=== PATIENT | male | born 1975 | race Caucasian/White ===

== ENCOUNTER 2017-03-26 14:15 | Inpatient (IN) | payer OTHER ==
[~2017-03-26] VITALS: Ht 172.7 cm; Wt 114.8 kg
--- NOTE | ~2017-03-26 | HP ---
Unit #: [id number] #: [id number] Patient: LINK GONZALES [id number] [place] [address] [id number] MR#: [id number] NAME: LINK GONZALES ROOM: [facility] Age: 41 Sex: M Admission Date: 03/26/2017 : 1975 Attending Physician: Nadine Duckworth M.D. Admitting Physician: Nadine Duckworth M.D. Primary Care Physician: Primary Care Physician No HISTORY AND PHYSICAL HISTORY OF PRESENT ILLNESS Link is a 41 year old admitted to [address] [place] [address] with depression and verbalizing wanting to hurt himself. He has had other admissions to this facility. PAST MEDICAL HISTORY 1. Long history of alcohol abuse. He denies anything currently. 2. Asthma. 3. Obesity. PAST SURGICAL HISTORY 1. Left knee. 2. Skin graft as a child. ALLERGIES Penicillin, sulfa, sertraline. SOCIAL HISTORY Smokes one pack per day. Has a history of alcohol abuse but denies anything currently. He denies any illicit drug use. FAMILY HISTORY Medically noncontributory. REVIEW OF SYSTEMS CONSTITUTIONAL: No fever or chills. HEENT: Denies any sore throat, ear pain or runny nose. CARDIOVASCULAR: Denies chest pain, irregular heart rhythm or palpitations. CHEST: Denies shortness of breath or cough. No hemoptysis. GASTROINTESTINAL: Denies nausea, vomiting, diarrhea or chronic constipation. ENDOCRINE: Denies history of increased thirst or urination. No recent significant weight loss or gain. GENITOURINARY: Denies dysuria, frequency, or hematuria. SKIN: Denies any rashes. HEMATOLOGIC: Denies history of increased bleeding or bruising. MUSCULOSKELETAL: Denies any hot, swollen joints. No generalized muscle pain. NEUROLOGIC: Denies problems with vision or speech. No frequent, severe headaches. No numbness, tingling or weakness in any extremities. Denies loss of bladder or bowel control. Unit #: [id number] #: [id number] Patient: LINK GONZALES CURRENT MEDICATIONS 1. Nicorette gum 2. Vistaril p.r.n. 3. Desyrel p.r.n. 4. Milk of Magnesia p.r.n. 5. Maalox p.r.n. 6. Tylenol p.r.n. PHYSICAL EXAMINATION GENERAL: Alert, obese, in no apparent distress. VITAL SIGNS: Blood pressure 116/72, heart rate 80, respirations 16, temperature 98.6. WEIGHT: 253 pounds. HEIGHT: 5'8". SKIN: Warm and dry without rash or lesion. HEENT: Normocephalic. TMs not viewed. Oral and nasal passages clear. Conjunctivae clear. Pupils equal, round and reactive to light and accommodation. Extraocular movements intact. NECK: Supple without lymphadenopathy or thyromegaly. HEART: Regular rate and rhythm without murmur. LUNGS: Clear. ABDOMEN: Soft, nontender. : Not done. EXTREMITIES: No evidence of cyanosis, clubbing or edema. Moves all extremities without focal deficit. NEUROLOGICAL: Grossly within normal limits. Cranial Nerves: II: Visual sheehan are intact. III, IV AND : Extraocular movements are intact. Pupils are equal, round and reactive to light. V: Facial sensation is grossly normal. VII: Facial movements and expression are normal. VIII: Auditory acuity grossly intact. IX, X: Uvula is midline. Phonation is normal. XI: Patient shrugs shoulders and turns head normally. XII: Tongue protrudes in the midline. Sensory and Motor Function: Sensory and motor sensation is grossly normal. Motor: moves all extremities well. Coordination: Gait is normal. Deep Tendon Reflexes: Intact. IMPRESSION Psychiatric admission RECOMMENDATIONS PSYCHIATRIC: Per psychiatrist. MEDICAL: I see no contraindications to participating in facility's activities. MEDICAL PROGNOSIS Good. MEDICAL CONDITION Stable. Dictated by... Unit #: [id number] #: [id number] Patient: LINK GONZALES Aba Hawthorne/tiffanie TD: 03/26/2017 22:33 JOB #: [id number] HISTORY AND PHYSICAL Page 1 of 1 X Anna Erwin HISTORY AND PHYSICAL
--- NOTE | ~2017-03-26 | PA ---
Unit #: [id number] #: [id number] Patient: LINK GONZALES [id number] [facility] [place] [address] [id number] I MR#: [id number] NAME: LINK GONZALES ROOM: P264 Age: 41 Sex: M Admission Date: 03/26/2017 : 1975 Date of Assessment: 03/26/2017 Attending Physician: Nadine Duckworth M.D. Admitting Physician: Nadine Duckworth M.D. Primary Care Physician: Primary Care Physician No PSYCHIATRIC ASSESSMENT DATE OF SERVICE 03/26/2017. IDENTIFYING DATA Mr. Gonzales is a 41-year-old disabled white male, who is a resident of [place], [place], and is very well known to us from previous multiple encounters and carries a diagnosis of schizoaffective, bipolar type and was self-referred back to the hospital on a voluntary basis. CHIEF COMPLAINT "Suicide attempt today." HISTORY OF PRESENT ILLNESS Mr. Gonzales is a 41-year-old white male with long history of chronic mental illness, who apparently has been off his medication and has been decompensating and presented stating that he attempted to suicide today and that he tried to kill himself today by jumping out in front of a car, but knows the cause stop and stated that he has experienced suicidal ideation in the past 2 days and reports that he has been out of his prescription medication for the last 2 weeks because of the insurance issues and has not been taking his medication consistently over the past year until 2 weeks ago. He does report increasing depression, anxiety, irritability, restlessness, feelings of hopelessness and helplessness, and suicidal ideations with intent and plan and as such, recommendation for inpatient level of care for safety and stabilization was made and the patient was transferred to us. SUBSTANCE ABUSE HISTORY The patient denies any alcohol or drug abuse. PAST PSYCHIATRIC HISTORY The patient has had history of numerous and multiple [facility] addition to being at [facility], and has had outpatient treatment and has been diagnosed and treated for schizoaffective disorder, bipolar type. However, currently he has been off his medication and as such, has been decompensating. PAST MEDICAL HISTORY Asthma. ALLERGIES Penicillin, Zoloft, nicotine patch. Unit #: [id number] #: [id number] Patient: LINK GONZALES PERSONAL AND SOCIAL HISTORY A 41-year-old white male, who reports that he is single, unemployed, disabled, and lives in a homeless group home and has poor social support system. MENTAL STATUS EXAMINATION Middle-aged white male who was casually dressed with fair personal hygiene, appears to be in no acute distress or discomfort. He was awake and alert on interaction with intact orientation to time, place, and person. His mood was anxious and depressed with a congruent affect. His speech was slow and restricted in content. His thought processes were disorganized with some looseness of associations and suicidal ideations. His insight and judgment remain significantly impaired. DIAGNOSTIC IMPRESSION Psychiatric: Schizoaffective disorder, bipolar type, most recent episode depressed, recurrent, moderate, without psychotic features. Medical: Asthma. Stressors: Moderate psychosocial stressors. TREATMENT PLAN 1. The patient has presented with a history of mood disorder and has been decompensating and will need inpatient hospitalization for safety and stabilization. We will start him back on his home medications. We will adjust the medications and monitor response. 2. Supportive therapy was provided to the patient. 3. Safe, structured, and nourishing environment will be provided. ESTIMATED LENGTH OF STAY 5 to 7 days. ABILITY TO HELP SELF Limited. WILLINGNESS TO HELP SELF The patient appears to be willing to help self. STRENGTHS 1. Communicative. 2. Cooperative. PROBLEMS 1. Chronic dysphoric symptoms. 2. Poor social support system. DISCHARGE CRITERIA This will be contingent upon the patient's ability to show resolution of his depression and anxiety and his ability to stay safe to himself, particularly after discharge from the hospital. Dictated by... Melina Noyoal/dinesh TD: 03/27/2017 23:05 Unit #: [id number] #: [id number] Patient: LINK GONZALES JOB #: [id number] PSYCHIATRIC ASSESSMENT Page 1 of 1 X Nadine Duckworth MD PSYCHIATRIC ASSESSMENT
--- NOTE | ~2017-03-26 | DS ---
Unit #: [id number] #: [id number] [facility]: [facility] [id number] [facility] [place] [address] [id number] I MR#: [id number] NAME: LINK GONZALES ROOM: 64 Age: 41 Sex: M Admission Date: 03/26/2017 : 1975 Discharge Date: 04/02/2017 Attending Physician: Nadine Duckworth M.D. Primary Care Physician: Primary Care Physician No DISCHARGE SUMMARY IDENTIFYING DATA Mr. oGnzales is a 41-year-old disabled white male, who is a resident of [place], [place], and is known to us from previous encounter and was self-referred to the hospital. DISCHARGE DIAGNOSES Psychiatric: Schizoaffective disorder, bipolar type, most recent episode depressed, recurrent, moderate, without psychotic features. Medical: Asthma. Stressors: Mild psychosocial stressors. HISTORY OF PRESENT ILLNESS Please see initial psychiatric evaluation for details. PAST PSYCHIATRIC HISTORY Please see initial psychiatric evaluation for details. PAST MEDICAL HISTORY Please see initial psychiatric evaluation for details. HOSPITAL COURSE The patient was admitted to the adult psychiatric unit at [facility] jocelyne [facility] and was oriented to the hospital environment. Routine p.r.n. medications were initiated, and he was started back on his home medications including his Abilify and Effexor, and concerning his history of poor compliance with medication on an outpatient basis, he was considered to be a candidate for long-acting injectable antipsychotic and since he was not having any allergic reaction to Abilify, he was started on Aristada as a long-acting injectable antipsychotic and was given the first dose of 662 mg while on the unit; followed by which, it was decided that he will be maintained on Aristada on an outpatient basis and will be given the oral supplementation with Abilify for the next 2 weeks, and since he was denying any suicidal or homicidal ideations, it was decided that he will be discharged home and will continue treatment on an outpatient basis. DISCHARGE MEDICATIONS Aristada 662 mg intramuscular every 30 days for schizoaffective disorder and Effexor XR 150 mg a day for depression. DISCHARGE CONDITION Stable. PROGNOSIS Unit #: [id number] #: [id number] Patient: LINK GONZALES [facility]. Dictated by... IrfMelina Nicole/dinesh TD: 04/02/2017 19:46 JOB #: [id number] DISCHARGE SUMMARY Page 1 of 1 X Nadine Duckworth MD DISCHARGE SUMMARY
--- NOTE | ~2017-03-26 | PN ---
Unit #: [id number] #: [id number] Patient: LINK GONZALES [id number] [facility] [address] [place] [address] [id number] I MR#: [id number] NAME: LINK GONZALES ROOM: [facility] Age: 41 Sex: M Admission Date: 03/26/2017 : 1975 Attending Physician: Nadine Duckworth M.D. Admitting Physician: Nadine Duckworth M.D. Primary Care Physician: Primary Care Physician Roxana MC NOTES DATE 03/31/2017 DISCUSSION Mr. Gonzales is a 41-year-old, white male who was seen today and chart was reviewed and case was discussed with the staff. He has been anxious, withdrawn though has not shown any agitation, irritability and has been cooperative with treatment recommendations. He has been taking the medications and tolerating them fairly well with no reported side effects. MENTAL STATUS EXAM Middle-aged white male who was casually dressed with fair personal hygiene, appears to be in no acute distress or discomfort. He was awake and alert on interaction with intact orientation. His mood was anxious with congruent affect. He denies any suicidal or homicidal ideation. His insight and judgement remains slightly impaired. TREATMENT PLAN 1. We will continue him on his current medications and treatment protocol. We will monitor his response to the medication and make further adjustments as needed. 2. We will continue to follow up. Dictated by... Melina Noyola/tiffanie TD: 04/02/2017 03:09 JOB #: [id number] Unit #: [id number] #: [id number] Patient: LINK GONZALES PROGRESS NOTES Page 1 of 1 X Nadine Duckworth MD PROGRESS NOTE
--- NOTE | ~2017-03-26 | TN ---
Unit #: [id number] #: [id number] Patient: LINK GONZALES [id number] [facility] [address] [place] [address] [id number] I MR#: [id number] NAME: LINK GONZALES ROOM: P264 Age: 41 Sex: M Admission Date: 03/26/2017 : 1975 Discharge Date: 04/02/2017 Attending Physician: Nadine Duckworth M.D. Primary Care Physician: Primary Care Physician No LOC TRANSFER NOTE DATE OF SERVICE: 04/04/2017 IDENTIFYING DATA Mr. Gonzales is a 41-year-old, single, disabled white male who is a resident of [place], [place] and was stepped down to the outpatient treatment program from the adult inpatient psychiatric unit. CHIEF COMPLAINT "I need to get back to the outpatient treatment program." HISTORY OF PRESENT ILLNESS Mr. Gonzales is a 41-year-old white male with history of mood disorder and substance abuse, who was stepped down to the outpatient treatment program from the adult inpatient psychiatric unit, where he was brought in with increasing depression, suicidal ideations, and has been noncompliant with medications and was diagnosed and treated for schizoaffective disorder, bipolar type and alcohol abuse and he stabilized on Abilify long-acting injectable and was enrolled on Abilify monthly injection and stepped down to the outpatient treatment program. On evaluation by me, the patient reports that he got out of the hospital and has been staying at a local homeless senior living until he gets into a senior care house and has been staying sober and has been taking the medications and tolerating them fairly well. He denies any suicidal or homicidal ideations. SUBSTANCE ABUSE HISTORY The patient has history of alcohol abuse, but denies any other substance abuse. PAST PSYCHIATRIC HISTORY The patient has had history of multiple [facility] to being at , and has been diagnosed and treated for schizoaffective disorder bipolar type and is currently on a combination of Aristada once monthly injection and Effexor. PAST MEDICAL HISTORY Asthma. ALLERGIES Penicillin, shellfish, Zoloft, and nicotine patch. PERSONAL AND SOCIAL HISTORY A 41-year-old white male who reports that he is single, disabled, Unit #: [id number] #: [id number] Patient: LINK GONZALES unemployed and lives in a homeless senior living and has poor social support system. MENTAL STATUS EXAMINATION Middle-aged white male who was casually dressed with fair personal hygiene, appears to be in no acute distress or discomfort. He was awake and alert on interaction with intact orientation. His mood was anxious with a congruent affect. His speech was slow and goal directed. His thought processes were disorganized with some looseness of associations. He denies any suicidal or homicidal ideations. His insight and judgment remain significantly impaired. DIAGNOSTIC IMPRESSION Psychiatric: Schizoaffective disorder, bipolar type, most recent episode depressed, recurrent, moderate, without psychotic features; alcohol abuse, moderate. Medical: Asthma. Stressors: Moderate psychosocial stressors. TREATMENT PLAN 1. The patient has presented with history of substance abuse and mood disorder. We will recommend enrolling him into the outpatient treatment program and maintaining him on his current medications. We will monitor his response and make further adjustments as needed. 2. Supportive therapy was provided to the patient. 3. Safe, structured, and nourishing environment will be provided. ESTIMATED LENGTH OF STAY 14 to 21 days. ABILITY TO HELP SELF Limited. WILLINGNESS TO HELP SELF The patient appears to be willing to help self. STRENGTHS 1. Communicative. 2. Cooperative. PROBLEMS 1. Chronic dysphoric symptoms. 2. Poor social support system. DISCHARGE CRITERIA This will be contingent upon the patient's ability to show resolution of his depression and anxiety and his ability to stay safe and sober, particularly after discharge from the hospital. Dictated by... Melina Noyola/dinesh TD: 04/05/2017 22:27 JOB #: [id number] Unit #: [id number] #: [id number] Patient: LINK GONZALES LOC TRANSFER NOTE Page 1 of 1 X Nadine Duckworth MD X LOC TRANSFER NOTE
--- NOTE | ~2017-03-26 | PN ---
Unit #: [id number] #: [id number] Patient: LINK GONZALES [id number] [facility] [address] [place] [address] [id number] I MR#: [id number] NAME: LINK GONZALES ROOM: 64 Age: 41 Sex: M Admission Date: 03/26/2017 : 1975 Attending Physician: Nadine Duckworth M.D. Admitting Physician: Nadine Duckworth M.D. Primary Care Physician: Primary Care Physician Roxana ALLEN PROGRESS NOTES DATE 03/30/2017 DISCUSSION Mr. Gonzales is a 41-year-old white male who was seen today and chart was reviewed and case was discussed with the staff. He has been anxious, withdrawn, rather seclusive to himself. Meanwhile, he has been cooperative with treatment recommendations and has been taking medications and tolerating them fairly well with no reported side effects. MENTAL STATUS EXAMINATION Middle-aged white male who was casually dressed with fair personal hygiene and appears to be in no acute distress or discomfort. He was awake and alert on interactions with intact orientation. His mood was anxious with congruent affect. He denies any suicidal or homicidal ideations and also denies any auditory or visual hallucinations. His insight and judgement remains slightly impaired. TREATMENT PLAN 1. Will continue on his current medications and treatment protocol. Will monitor response to the medications and make further adjustments as needed. 2. Will continue to follow up. Dictated by... Melina Noyola/neha TD: 03/30/2017 16:54 JOB #: [id number] Unit #: [id number] #: [id number] Patient: LINK GONZALES PROGRESS NOTES Page 1 of 1 X Nadine Duckworth MD PROGRESS NOTE
--- NOTE | ~2017-03-26 | PN ---
Unit #: [id number] #: [id number] Patient: LINK GONZALES [id number] [facility] [address] [place] [address] [id number] I MR#: [id number] NAME: LINK GONZALES ROOM: 64 Age: 41 Sex: M Admission Date: 03/26/2017 : 1975 Attending Physician: Nadine Duckworth M.D. Admitting Physician: Nadine Duckworth M.D. Primary Care Physician: Primary Care Physician Roxana ALLEN PROGRESS NOTES DATE 03/29/2017 DISCUSSION Mr. Gonzales is a 41-year-old white male who was seen today and chart was reviewed and case was discussed with the staff. He has been anxious, withdrawn, rather seclusive to himself. Meanwhile, he has been cooperative with treatment recommendations and has been taking medications and tolerating them fairly well with no reported side effects. MENTAL STATUS EXAMINATION Middle-aged white male who was casually dressed with fair personal hygiene and appears to be in no acute distress or discomfort. He was awake and alert on interaction with intact orientation. His mood was anxious with congruent affect. He denies any suicidal or homicidal ideation. His insight and judgement remains slightly impaired. TREATMENT PLAN 1. Will continue on his current medications and treatment protocol. Will monitor his response to the medications and make further adjustments as needed. 2. Will continue to follow up. Dictated by... Melina Noyola/neha TD: 03/29/2017 22:32 JOB #: [id number] Unit #: [id number] #: [id number] Patient: LINK GONZALES PROGRESS NOTES Page 1 of 1 X Nadine Duckworth MD PROGRESS NOTE
--- NOTE | ~2017-03-26 | PN ---
Unit #: [id number] #: [id number] Patient: LINK GONZALES [id number] [facility] [address] [place] [address] [id number] I MR#: [id number] NAME: LINK GONZALES ROOM: 64 Age: 41 Sex: M Admission Date: 03/26/2017 : 1975 Attending Physician: Nadine Duckworth M.D. Admitting Physician: Nadine Duckworth M.D. Primary Care Physician: Primary Care Physician Roxana ALLEN PROGRESS NOTES DATE March 28, 2017 DISCUSSION Mr. Gonzales is a 41-year-old white male, who was seen today and chart was reviewed and the case was discussed with the staff. He was seen to be anxious, withdrawn, seclusive and isolative, and exhibiting significant depressive symptoms. Meanwhile, he has been taking medications and tolerating them fairly well and he was maintained on his Abilify yesterday without any intolerability issues. MENTAL STATUS EXAMINATION Middle-aged white male, who was casually dressed with fair personal hygiene and appears to be in no acute distress or discomfort. He was awake and alert on interaction with intact orientation. His mood is anxious and depressed with a congruent affect. He reports having suicidal ideations, but denies any homicidal ideations. His insight and judgment remain slightly impaired. TREATMENT PLAN 1. We will continue him on his current treatment protocol, and will monitor his response to the medications, and make further adjustments as needed. 2. We will continue to followup. Dictated by... Melina Noyola/rose mary TD: 03/28/2017 12:22 JOB #: [id number] Unit #: [id number] #: [id number] Patient: LINK GONZALES PROGRESS NOTES Page 1 of 1 X Nadine Duckworth MD PROGRESS NOTE
--- NOTE | ~2017-03-26 | CO ---
Unit #: [id number] #: [id number] Patient: LINK GONZALES [id number] [place] [address] [id number] I MR#: [id number] NAME: LINK GONZALES ROOM: 64 Age: 41 Sex: M Admission Date: 03/26/2017 : 1975 Attending Physician: Nadine Duckworth M.D. Primary Care Physician: Primary Care Physician No Consultation Date: 03/27/2017 CONSULTATION REPORT HISTORY OF PRESENT ILLNESS Link is a 41-year-old who was admitted with multiple scabbed areas on both legs. We have been asked to assess and give recommendations. OBJECTIVE GENERAL: Alert, well nourished, in no apparent distress. VITAL SIGNS: Blood pressure 120/70, heart rate 80, respirations 16, temperature 98.6. SKIN: Warm and dry without rash. He has multiple scabbed areas on his lower extremities. There is no increased redness, swelling, heat, or pus noted. All of these areas are dry. ASSESSMENT Most likely folliculitis. The areas are healing. PLAN No Rx. Keep it clean with soap and water. Dictated by... Anna Erwin P.A.-C. for Melina Watts/dinesh TD: 03/28/2017 02:48 JOB #: [id number] CONSULTATION REPORT Page 1 of 1 X Anna Erwin CONSULTATION REPORT
--- NOTE | ~2017-03-26 | PN ---
Unit #: [id number] #: [id number] Patient: LINK GONZALES [id number] [facility] [address] [place] [address] [id number] I MR#: [id number] NAME: LINK GONZALES ROOM: [facility] Age: 41 Sex: M Admission Date: 03/26/2017 : 1975 Attending Physician: Nadine Duckworth M.D. Admitting Physician: Nadine Duckworth M.D. Primary Care Physician: Primary Care Physician Roxana MC NOTES DATE March 27, 2017 DISCUSSION Mr. Gonzales is a 41-year-old white male, who was seen today and chart was reviewed and the case was discussed with the staff. He has been anxious, withdrawn, and seclusive to himself. Meanwhile, he has been cooperative with the treatment recommendations and he has been taking the medications and tolerating them fairly well with no reported side effects. MENTAL STATUS EXAMINATION Young white male, who was casually dressed with fair personal hygiene and appears to be in no acute distress or discomfort. He was awake and alert on interaction with intact orientation. His mood is anxious with a congruent affect. He denies any suicidal or homicidal ideations. His insight and judgment remain slightly impaired. TREATMENT PLAN 1. We will continue him on his current medications and treatment protocol, and will monitor his response to the medications, and make further adjustments as needed. 2. We will continue to followup. Dictated by... Melina Noyola/rose mary TD: 03/28/2017 09:01 JOB #: [id number] Unit #: [id number] #: [id number] Patient: LINK GONZALES JENNIEMAYE PROGRESS NOTES Page 1 of 1 X Nadine Duckworth MD X PROGRESS NOTE
[2017-03-27 09:43] LABS: BASOPHIL% 0.4 % (0-2.5); EOSINOPHIL# 0.3 X10e3 (0-0.7); EOSINOPHIL% 4.8 % (0.0-7.0); HEMATOCRIT 44.4 % (38.0-50.0); HEMOGLOBIN 14.8 gm/dL (13.0-16.0); LYMPHOCYTE# 2.2 X10e3 (1.0-3.5); MEAN CELL VOLUME 90.8 FL (83-96); MEAN CORPUSCULAR HEMOGLOBIN 30.3 PG (28-34); MEAN CORPUSCULAR HGB CONC 33.4 g/dL (30-36); MEAN PLATELET VOLUME 8.2 FL (6.5-11.5); MONOCYTE# 0.5 X10e3 (0-1.0); MONOCYTE% 7.5 % (3.0-12.0); NEUTROPHIL# 3.1 X10e3 (1.5-7.1); NEUTROPHIL% 51.3 % (40-75); PLATELET COUNT 281 X10e3 (140-420); RED BLOOD COUNT 4.89 X10e (3.90-5.60); RED CELL DISTRIBUTION WIDTH 13.4 % (11.0-15.5); WHITE BLOOD COUNT 6.1 X10e3 (4.0-10.5)
[2017-03-27 09:45] LABS: DIFF IND NO
[2017-03-27 10:02] LABS: URINE APPEARANCE CLEAR; URINE BILIRUBIN NEG (NEG); URINE BLOOD NEG (NEG); URINE COLOR YELLOW; URINE GLUCOSE NEG (NEG); URINE KETONE NEG (NEG); URINE LEUKOCYTE ESTERASE NEG (NEG); URINE NITRATE NEG (NEG); URINE PH 7.5 (5-8); URINE PROTEIN NEG (NEG); URINE SPECIFIC GRAVITY 1.011 (1.003-1.035); URINE UROBILINOGEN 0.2 MG/DL (NEG)
[2017-03-27 10:03] LABS: ALBUMIN SERUM 3.8 g/dL (3.5-5.0); BILIRUBIN,TOTAL 0.5 mg/dL (0.2-2.0); BUN/CREATININE RATIO 11.42; CALCIUM SERUM 9.2 mg/dL (8.4-10.2); CREATININE SERUM 0.7 mg/dL (0.6-1.4); GLOM FILT RATE Estimated 117.3 mL/min (>60); POTASSIUM 4.5 mmol/L (3.5-5.1); PROTEIN TOTAL SERUM 6.6 g/dL (6.0-8.3)
[2017-03-27 10:30] LABS: AMPHETAMINE NEG (NEG); BARBITURATES NEG (NEG); BENZODIAZEPINES NEG (NEG); COCAINE NEG (NEG); MARIJUANA NEG (NEG); OPIATES NEG (NEG); TRICYCLIC ANTIDEPRESSANTS NEG (NEG); U METHADONE NEG (NEG)
== END 2017-04-02 10:30 | disposition home or self-care (01) | DRG 885 ==
LOC: POF 16:33 → P2L 16:33
PROVIDERS: Psychiatry & Neurology Psychiatry
DX: F25.0 Schizoaffective disorder, bipolar type (principal); Z59.0 Homelessness; R45.851 Suicidal ideations; Z88.0 Allergy status to penicillin; Z88.2 Allergy status to sulfonamides; Z88.8 Allergy status to other drugs, medicaments and biological substances; F17.210 Nicotine dependence, cigarettes, uncomplicated; L73.9 Follicular disorder, unspecified
CPT/HCPCS: 80053; 80307; 81003; 85025